=== PATIENT | male | born 1970 | race Hispanic/Latino ===

== ENCOUNTER 2018-02-24 15:15 | Emergency (ER) | payer SELFPAY ==
--- NOTE | 2018-02-24 18:48 | ER ---
Nurse's Notes [facility] Name: Devan Zhang Age: 47 yrs Sex: Male : 1970 Arrival Date: 02/24/2018 Time: 15:19 Bed Waiting Private MD: None, None Diagnosis: Presentation: 02/24 15:22 Presenting complaint: Patient states: RUQ pain for 1 week. Transition of care: patient aj was not received from another setting of care. Onset of symptoms was February 16, 2018. Care prior to arrival: None. 15:22 Method Of Arrival: Ambulatory aj 15:22 Acuity: CRISTIANE 3 aj Triage Assessment: 15:23 General: Appears in no apparent distress. comfortable, Behavior is calm, cooperative, aj appropriate for age. Pain: Complains of pain in right upper quadrant. Neuro: Level of Consciousness is awake, alert, obeys commands, Oriented to person, place, time, situation, Appropriate for age. Respiratory: Airway is patent Respiratory effort is even, unlabored, Respiratory pattern is regular, symmetrical. GI: Reports upper abdominal pain. Derm: Skin is intact, is healthy with good turgor, Skin is pink, warm \T\ dry. normal. Historical: - Allergies: 15:23 No Known Allergies; aj - Home Meds: 15:23 None [Active]; aj - PMHx: 15:23 None; aj - PSHx: 15:23 None; aj - Immunization history:: Adult Immunizations up to date. - Social history:: Smoking status: Patient uses tobacco products, smokes one-half pack cigarettes per day, Patient uses alcohol, claims drinking about a 6 pack/day. Assessment: 18:46 Reassessment: Patient's reported that patient walked home. aj Vital Signs: 15:23 BP 135 / 95; Pulse 61; Resp 20; Temp 97.5; Pulse Ox 98% on R/A; Weight 77.11 kg; Height aj 5 ft. 6 in. (167.64 cm); 15:23 Body Mass Index 27.44 (77.11 kg, 167.64 cm) aj ED Course: 15:19 Patient arrived in ED. mr 15:19 None, None is Private Physician. mr 15:22 Triage completed. aj 15:23 Arm band placed on left wrist. Patient placed in waiting room, Patient notified of wait aj time. 16:25 Patient's name was called from ER lobby. No response. dm5 16:37 Patient's name was called from ER lobby. No response. aj 18:44 Kasandra Hernandez, RN is Primary Nurse. kr2 18:46 Lorenzo Smith PA is PHCP. cp 18:46 Madan Galan MD is Attending Physician. cp Administered Medications: No medications were administered Outcome: 18:46 Eloped from waiting room, before seeing physician Time discovered patient gone: February 24 2018 at 18:46 18:47 Patient left the ED. aj Signatures: Sarah Gutierrez, RN RN Mariluz Meraz RN Sirena Van mr Lorenzo Smith PA PA cp Kasandra Hernandez, LOLIS RN kr2
== END 2018-02-24 18:47 | disposition left against medical advice (07) ==
LOC: ER 15:15
DX: Z02.9 Encounter for administrative examinations, unspecified (principal)
CPT/HCPCS: 99281

== ENCOUNTER 2019-01-04 18:50 | Emergency (ER) | payer SELFPAY ==
[2019-01-05] MEDS ORDERED: HYDROCODONE/APAP 7.5/325 MG TAB ONE (00:16)
[2019-01-05] MEDS ORDERED: IBUPROFEN 400 MG TAB ONE (00:16)
[2019-01-05] MEDS ORDERED: ACYCLOVIR 400 MG TABLET ONE (00:16)
--- NOTE | 2019-01-05 00:43 | ER ---
Nurse's Notes [facility] Name: Devan Zhang Age: 48 yrs Sex: Male : 1970 Arrival Date: 01/04/2019 Time: 18:53 Bed 10 Private MD: Diagnosis: Zoster [herpes zoster]-Right T5 dermatome Presentation: 01/04 19:26 Presenting complaint: Patient states: "I am having pain and a rash on the right side, jd3 under my arm. it really prado.". Transition of care: patient was not received from another setting of care. Onset of symptoms was December 31, 2018. Risk Assessment: Do you want to hurt yourself or someone else? Patient reports no desire to harm self or others. Initial Sepsis Screen: Does the patient meet any 2 criteria? No. Patient's initial sepsis screen is negative. Does the patient have a suspected source of infection? No. Patient's initial sepsis screen is negative. Care prior to arrival: None. 19:26 Method Of Arrival: Ambulatory jd3 19:26 Acuity: CRISTIANE 3 jd3 Historical: - Allergies: 19:27 No Known Allergies; jd3 - Home Meds: 19:27 None [Active]; jd3 - PMHx: 19:29 Hypertension; jd3 - PSHx: 19:27 None; jd3 - Immunization history:: Adult Immunizations unknown. - Social history:: Smoking status: Patient uses tobacco products, denies chronic smoking, but will smoke occasionally. - Ebola Screening: : Patient negative for fever greater than or equal to 101.5 degrees Fahrenheit, and additional compatible Ebola Virus Disease symptoms. Screenin:25 Abuse screen: Denies threats or abuse. Nutritional screening: No deficits noted. Fall fu Risk None identified. No fall in past 12 months (0 pts). Assessment: 23:18 General: Appears uncomfortable, well groomed, Behavior is calm, cooperative, Denies fu fever, chills. Pain: Complains of pain in upper side of the right chest, right armpit, upper portion of the right back. Pain does not radiate. Pain currently is 10 out of 10 on a pain scale. Quality of pain is described as burning, Pain began 6 days ago. Neuro: Level of Consciousness is awake, alert, obeys commands. Cardiovascular: Denies chest pain. Respiratory: Breath sounds are clear bilaterally. GI: No signs and/or symptoms were reported involving the gastrointestinal system. : No signs and/or symptoms were reported regarding the genitourinary system. Derm: redness and rashes noted to upper side of right chest, right armpits and upper potion of right back that started 4 days ago. Musculoskeletal: No deficits noted. 01/05 00:46 Reassessment: Patient appears in no apparent distress at this time. Patient and/or fu family updated on plan of care and expected duration. Pain level reassessed. Pain: Complains of pain in right scapular area and chest and back Pain currently is 8 out of 10 on a pain scale. Quality of pain is described as burning. Neuro: Level of Consciousness is awake, alert, obeys commands. Respiratory: Airway is patent Respiratory effort is even, unlabored, Respiratory pattern is regular. Vital Signs: 01/04 19:28 BP 156 / 111; Pulse 66; Resp 17 S; Temp 99.0(TE); Pulse Ox 97% on R/A; Weight 90.72 kg jd3 (R); Height 5 ft. 6 in. (167.64 cm) (R); Pain 8/10; 23:13 BP 169 / 115; Pulse 64; Resp 17 S; Temp 98.9(O); Pulse Ox 98% on R/A; jd3 01/05 00:33 BP 154 / 92; Pulse 66; Resp 18; Temp 97.3(O); Pulse Ox 97% on R/A; Pain 8/10; fu 01/04 19:28 Body Mass Index 32.28 (90.72 kg, 167.64 cm) jd3 ED Course: 01/04 18:53 Patient arrived in ED. ss4 19:27 Triage completed. jd3 19:29 Arm band placed on Patient notified of wait time. jd3 23:18 James Gaines, LOLIS is Primary Nurse. fu 23:19 Lorenzo Smith PA is PHCP. cp 23:20 Mamadou Long MD is Attending Physician. cp 01/05 01:02 No provider procedures requiring assistance completed. Patient did not have IV access fu during this emergency room visit. Administered Medications: 00:09 Drug: Hydrocodone-Acetaminophen (7.5 mg-325 mg) 1 tabs Route: PO; fu 00:51 Follow up: Response: No adverse reaction; Pain is decreased fu 00:09 Drug: Acyclovir 800 mg Route: PO; fu 00:51 Follow up: Response: No adverse reaction fu 00:09 Drug: Ibuprofen 800 mg Route: PO; fu 00:50 Follow up: Response: No adverse reaction; Pain is decreased fu Outcome: 00:42 Discharge ordered by MD. cp 01:02 Discharged to home ambulatory. fu 01:02 Condition: improved 01:02 Discharge instructions given to patient, Instructed on discharge instructions, follow up and referral plans. Demonstrated understanding of instructions, follow-up care, medications, Prescriptions given X 3. 01:03 Patient left the ED. fu Signatures: Lorenzo Smith PA PA cp Davies, Jonathon RN RN jJames Doran RN RN Anaya Boyd ss4 Corrections: (The following items were deleted from the chart) 01/04 19:29 19:27 PMHx: None; jd3 jd3 19:29 19:29 Arm band placed on jd3 jd3
--- NOTE | 2019-01-05 00:43 | EDPHYS ---
Physician Documentation [facility] Name: Devan Zhang Age: 48 yrs Sex: Male : 1970 Arrival Date: 01/04/2019 Time: 18:53 Bed 10 Private MD: ED Physician Mamadou Long HPI: 01/04 23:50 This 48 yrs old Male presents to ER via Ambulatory with complaints of Rash. cp 23:50 The patient's rash thought to be caused by an unknown cause. The rash is located on the cp back and chest. The rash can be described as erythematous, papular, raised. Onset: The symptoms/episode began/occurred 4 day(s) ago. Severity of symptoms: in the emergency department the symptoms are unchanged despite home interventions. Pain described as burning. Patient reports he started having pain in area 6 days ago. Historical: - Allergies: 19:27 No Known Allergies; jd3 - Home Meds: 19:27 None [Active]; jd3 - PMHx: 19:29 Hypertension; jd3 - PSHx: 19:27 None; jd3 - Immunization history:: Adult Immunizations unknown. - Social history:: Smoking status: Patient uses tobacco products, denies chronic smoking, but will smoke occasionally. - Ebola Screening: : Patient negative for fever greater than or equal to 101.5 degrees Fahrenheit, and additional compatible Ebola Virus Disease symptoms. ROS: 23:55 Constitutional: Negative for body aches, chills, fever, poor PO intake. cp 23:55 Eyes: Negative for injury, pain, redness, and discharge. cp 23:55 ENT: Negative for drainage from ear(s), ear pain, sore throat, difficulty swallowing, difficulty handling secretions. 23:55 Cardiovascular: Positive for chest pain, of the right side of chest, Negative for edema, palpitations. 23:55 Respiratory: Negative for cough, shortness of breath, wheezing. 23:55 Abdomen/GI: Negative for abdominal pain, nausea, vomiting, and diarrhea. 23:55 Back: Positive for pain at rest, pain with movement, of the right scapular area. 23:55 Skin: Positive for rash, of the chest and back. 23:55 Neuro: Negative for altered mental status, dizziness, headache, weakness. 23:55 All other systems are negative. Exam: 23:58 Constitutional: The patient appears in no acute distress, alert, awake, cp non-diaphoretic, non-toxic, well developed, well nourished, uncomfortable. 23:58 Head/Face: Normocephalic, atraumatic. cp 23:58 Eyes: Periorbital structures: appear normal, Conjunctiva: normal, no exudate, no injection, Sclera: no appreciated abnormality, Lids and lashes: appear normal, bilaterally. 23:58 ENT: External ear(s): are unremarkable, Nose: is normal, Mouth: is normal, Posterior pharynx: Airway: no evidence of obstruction, patent. 23:58 Neck: ROM/movement: is normal, is supple, without pain, no range of motions limitations. 23:58 Chest/axilla: Inspection: rash, of the right breast Palpation: crepitus, is not appreciated, tenderness, that is moderate, of the right breast. 23:58 Cardiovascular: Rate: normal, Rhythm: regular. 23:58 Respiratory: the patient does not display signs of respiratory distress, Respirations: normal, no use of accessory muscles, no retractions, no splinting, no tachypnea, labored breathing, is not present, Breath sounds: are clear throughout, no decreased breath sounds, no stridor, no wheezing. 23:58 Skin: rash can be described as erythematous, papular, grouped, on the right scapular area and right lower breast. Vital Signs: 19:28 BP 156 / 111; Pulse 66; Resp 17 S; Temp 99.0(TE); Pulse Ox 97% on R/A; Weight 90.72 kg jd3 (R); Height 5 ft. 6 in. (167.64 cm) (R); Pain 8/10; 23:13 BP 169 / 115; Pulse 64; Resp 17 S; Temp 98.9(O); Pulse Ox 98% on R/A; jd3 01/05 00:33 BP 154 / 92; Pulse 66; Resp 18; Temp 97.3(O); Pulse Ox 97% on R/A; Pain 8/10; fu 01/04 19:28 Body Mass Index 32.28 (90.72 kg, 167.64 cm) jd3 MDM: 01/04 23:20 Patient medically screened. cp 01/05 00:00 Differential diagnosis: varicella, allergic reaction, cellulitis. 00:40 Data reviewed: vital signs, nurses notes. 00:40 Counseling: I had a detailed discussion with the patient and/or guardian regarding: the cp historical points, exam findings, and any diagnostic results supporting the discharge/admit diagnosis, the need for outpatient follow up, a family practitioner, to return to the emergency department if symptoms worsen or persist or if there are any questions or concerns that arise at home. Response to treatment: the patient's symptoms have mildly improved after treatment, and as a result, I will discharge patient. 01/05 00:11 Order name: Vital Signs; Complete Time: 00:36 cp Administered Medications: 00:09 Drug: Hydrocodone-Acetaminophen (7.5 mg-325 mg) 1 tabs Route: PO; fu 00:51 Follow up: Response: No adverse reaction; Pain is decreased fu 00:09 Drug: Acyclovir 800 mg Route: PO; fu 00:51 Follow up: Response: No adverse reaction fu 00:09 Drug: Ibuprofen 800 mg Route: PO; fu 00:50 Follow up: Response: No adverse reaction; Pain is decreased fu Disposition: 01/05/19 00:42 Discharged to Home. Impression: Zoster [herpes zoster] - Right T5 dermatome. - Condition is Stable. - Discharge Instructions: Shingles. - Prescriptions for Acyclovir 800 mg Oral Tablet - take 1 tablet by ORAL route 5 times per day for 10 days; 50 tablet. Tylenol- Codeine #3 300-30 mg Oral Tablet - take 2 tablets by ORAL route every 6 hours As needed; 20 tablet. capsaicin 0.075 % Topical cream - apply 1 application by TOPICAL route 3 times per day As needed; 30 gram. - Medication Reconciliation Form, Thank You Letter, Antibiotic Education, Prescription Opioid Use form. - Follow up: Private Physician; When: 2 - 3 days; Reason: Recheck today's complaints. - Problem is new. - Symptoms have improved. Addendum: 01/06/2019 11:38 Co-signature as Attending Physician, Mamadou Long MD I agree with the assessment and w a plan of care. Signatures: Lorenzo Smith PA PA cp Appiah, William, MD MD wa Davies, Jonathon, RN RN jd3 James Gaines RN RN fu Corrections: (The following items were deleted from the chart) 01/04 19:29 19:27 PMHx: None; jd3 jd3 01/05 01:03 00:42 01/05/2019 00:42 Discharged to Home. Impression: Zoster [herpes zoster] - Right fu T5 dermatome. Condition is Stable. Forms are Medication Reconciliation Form, Thank You Letter, Antibiotic Education, Prescription Opioid Use. Follow up: Private Physician; When: 2 - 3 days; Reason: Recheck today's complaints. Problem is new. Symptoms have improved. cp
== END 2019-01-05 01:03 | disposition home or self-care (01) ==
LOC: ER 18:50
DX: B02.9 Zoster without complications (principal); B02.29 Other postherpetic nervous system involvement; I10 Essential (primary) hypertension; Z72.0 Tobacco use
CPT/HCPCS: 99283

== ENCOUNTER 2022-03-05 02:25 | Emergency (ER) | payer SELFPAY ==
[2022-03-05] MEDS ORDERED: Caclcium Chloride 10% INJ SYR IV ONE (02:26)
[2022-03-05] MEDS ORDERED: D50W 25 GM/50 ML VIAL IV ONE (02:26)
[2022-03-05] MEDS ORDERED: EPINEPHrine 1 MG/10 ML SYR IV ONE (02:26)
[2022-03-05] MEDS ORDERED: D5W 1,000 ML IV ONE (02:50)
[2022-03-05] MEDS ORDERED: EPINEPHRINE/PF 1 MG/ML AMP ONE (02:50)
--- NOTE | 2022-03-05 03:40 | ER ---
Nurse's Notes [facility] Name: Devan Zhang Age: 51 yrs Sex: Male : 1970 Arrival Date: 03/05/2022 Time: 02:36 Bed 4 Private MD: Diagnosis: Cardiac arrest, cause unspecified Presentation: 03/05 02:26 Chief complaint: EMS states: stated that they were having intercourse, pt as6 defecated, fell to floor and stopped breathing. EMS started compressions on seen. 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 02:26 Care prior to arrival: Assisted ventilation, Oral intubation, CPR via thumper and is as6 still in progress Cervical collar in place. Medication(s) given: Normal saline infusion, 1000 mL, epinephrine x4 Glucose check: 223. Compressions began prior to arrival. 02:26 Method Of Arrival: EMS: [facility] 02:26 Acuity: CRISTIANE 1 as 02:26 Onset of symptoms was March 05, 2022. as 02:26 Coronavirus screen: At this time, unable to obtain information related to travel as6 outside the [place] Ebola Screen: Unable to complete the Ebola screening because: Patient is intubated. Initial Sepsis Screen: Does the patient meet any 2 criteria? No. Patient's initial sepsis screen is negative. Does the patient have a suspected source of infection? No. Patient's initial sepsis screen is negative. Risk Assessment: Do you want to hurt yourself or someone else? Unable to obtain. Historical: - PMHx: 03:21 None; as6 - Immunization history:: Adult Immunizations unknown. - Social history:: Smoking status: unknown. Assessment: 02:26 CPR assessment: unresponsive, pupils fixed \T\ dilated, no respiratory effort, intubated, as6 Ambu ventilation. 02:33 Cardiac rhythm is PEA. as6 02:35 Cardiac rhythm is PEA. as6 02:52 Neuro: Babinski no response on right on left. as6 03:00 Cardiac rhythm is asystole. as6 06:54 General: Patient is going with medical collector to [place]. . tw5 Vital Signs: 02:40 BP 53 / 18; as6 02:42 BP 39 / 27; Pulse 90; Resp 14 A; Pulse Ox 96% on 15 lpm ETT ambu; as6 02:44 BP 139 / 59; as6 02:48 BP 75 / 44; Pulse 81; Resp 12 A; Pulse Ox 84% on 15 lpm ETT ambu; as6 02:56 Pulse 38; as6 02:59 Temp 96.9(R); as6 03:53 Weight 83.91 kg; as6 ED Course: 02:30 Maintain EMS IV. Dressing intact. Good blood return noted. Site clean \T\ dry. Gauge \T\ as 6 site: IO to right leg. 02:31 Inserted saline lock: 20 gauge in right antecubital area, using aseptic technique. as6 Blood collected. 02:36 Patient arrived in ED. bp1 02:39 Inserted saline lock: 18 gauge in left forearm, using aseptic technique. as6 03:01 Clemente Machuca MD is Attending Physician. mh7 03:04 Daryl Dolan, LOLIS is Primary Nurse. as6 03:05 Police notified at 03:06 contacted [place] [employer] to have an officer call out the 2 outside salesman for the patient. 03:12 Triage completed. as6 03:39 Clemente Machuca MD is Pronouncing Provider. mh7 03:45 Arm band placed on. as6 Administered Medications: 02:33 Drug: Sodium Bicarbonate 1 amp Route: IVP; Site: right antecubital; as6 03:46 Follow up: Response: No adverse reaction as6 02:36 Drug: EPINEPHrine 0.1mg/mL 1:10,000 1 mg Route: IVP; Site: right antecubital; as6 03:45 Follow up: Response: No adverse reaction as6 02:37 Drug: Calcium Chloride 1 grams Route: IVP; Site: right antecubital; as6 03:45 Follow up: Response: No adverse reaction as6 Medication: 03:45 VIS not applicable for this client. as6 Outcome: 03:00 Outcome Patient as6 03:00 Condition: as6 03:00 Patient : Time of 03:00 Pronounced by Clemente Machuca MD as6 07:47 Patient left the ED. drew Signatures: Macey Delacruz mw2 Rosenad Otero bp1 Clemente Machuca MD MD 7 Kyra Perez tw5 Daryl Dolan, LOLIS RN as6 Twila Peters RN RN drew Corrections: (The following items were deleted from the chart) :22 03:21 PMHx: Hypertension; as6 as6
--- NOTE | 2022-03-05 03:40 | EDPHYS ---
Physician Documentation [facility] Name: Devan Zhang Age: 51 yrs Sex: Male : 1970 Arrival Date: 03/05/2022 Time: 02:36 Bed 4 Private MD: ED Physician Clemente Machuca HPI: 03/05 03:04 This 51 yrs old Male presents to ER via Unassigned with complaints of CPR. mh7 03:04 Preceding the arrest, the patient collapsed. The arrest occurred at home. Pre-hospital mh7 course: The arrest was witnessed by family. Bystanders at the scene did not perform CPR. EMS care prior to arrival: initiation of ACLS, peripheral IV, Intraosseous access. intubation was successfully performed, oxygen, by BVM to assist ventilations. 100% by ET tube. Time elapsed prior to ACLS is unknown. ACLS has been in progress for 42 minutes. ACLS details: Initial rhythm was PEA. The presenting rhythm is PEA. Airway: Ambu assist ventilation, Medications given by EMS prior to arrival - Epinephrine IV x 4 doses, Defibrillation was not performed, an external pacer was not used, Response to therapy: continued arrest. Per EMS, they were called to patient's home after he collapsed during intercourse. At the scene, he was noted to be in PEA. ACLS was initiated and patient was intubated. He received Epinephrine 4 mg total with brief non sustained ROSC. Patient in PEA on arrival to ED unresponsive, without spontaneous respirations, no response to any stimuli, and fixed/dilated pupils.. Historical: - PMHx: 03:21 None; as6 - Immunization history:: Adult Immunizations unknown. - Social history:: Smoking status: unknown. ROS: 03:04 Unable to obtain ROS due to comatose state. mh7 Exam: 03:04 Head/Face: Normocephalic, atraumatic. Eyes: Pupils equal round and reactive to light, mh7 extra-ocular motions intact. Lids and lashes normal. Conjunctiva and sclera are non-icteric and not injected. Cornea within normal limits. Periorbital areas with no swelling, redness, or edema. 03:04 Neck: Trachea midline, no thyromegaly or masses palpated, and no cervical lymphadenopathy. Supple, full range of motion without nuchal rigidity, or vertebral point tenderness. No Meningismus. Chest/axilla: Normal chest wall appearance and motion. Nontender with no deformity. No lesions are appreciated. 03:04 Male : Normal genitalia with no discharge or lesions. Skin: Warm, dry with normal turgor. Normal color with no rashes, no lesions, and no evidence of cellulitis. 03:04 Constitutional: The patient appears in obvious distress, severely distressed, unresponsive. 03:04 ENT: Nose: dried blood, ETT in place. 03:04 Cardiovascular: Rate: actual rate is 0 bpm, Rhythm: PEA, Pulses: not palpable, Heart sounds: Absent, Edema: is not appreciated, JVD: is not appreciated. 03:04 Abdomen/GI: Inspection: abdomen appears normal, Palpation: soft, in all quadrants, mass, is not appreciated. 03:04 Back: normal spinal alignment noted. 03:04 Musculoskeletal/extremity: no signs of trauma, no spontaneous movement. 03:04 Neuro: Orientation: unable to test, the patient is comatose, Mentation: unable to test, the patient is comatose, Memory: unable to test, the patient is comatose, Cranial nerves: unable to test, the patient is comatose, Cerebellar function: unable to test, the patient is comatose, Motor: no spontaneous movement, Sensation: no response to any stimuli, seizure activity, is not displayed by the patient, Abnormal movements: there are no abnormal movements. Vital Signs: 02:40 BP 53 / 18; as6 02:42 BP 39 / 27; Pulse 90; Resp 14 A; Pulse Ox 96% on 15 lpm ETT ambu; as6 02:44 BP 139 / 59; as6 02:48 BP 75 / 44; Pulse 81; Resp 12 A; Pulse Ox 84% on 15 lpm ETT ambu; as6 02:56 Pulse 38; as6 02:59 Temp 96.9(R); as6 03:53 Weight 83.91 kg; as6 Procedures: 03:04 CPR: See CPR flow sheet. Initial patient assessment: pupils fixed \T\ dilated, no mh7 respiratory effort, intubated, Ambu ventilation, pulses absent w/ compressions, The presenting cardiac rhythm is PEA. respirations assisted with BVM, the patient was intubated prior to arrival, Compressions: began prior to arrival. Meds given: See Meds list. Epinephrine X 1, Sodium Bicarbonate 1 amp, Calcium Chloride 1 amp. regained rhythm, briefly, despite ED evaluation and treatment, the patient . Family notified. CPR was stopped at 03:00. MDM: 03:04 Differential diagnosis: arrythmia, cardiac arrest, respiratory arrest, overdose, mh7 asphyxiation. Data reviewed: vital signs, nurses notes, EMS record. Response to treatment: There is no appreciated change of the patient's symptoms at this time. ED course: Patient remained without signs of life including no spontaneous pulse or heartbeat, no spontaneous respirations, no response to any stimuli, and fixed/dilated pupils. CPR discontinued and patient pronounced at 0300. Will discuss with family. Nursing staff to contact medical specialist.. 03:39 Patient medically screened. [facility] Administered Medications: 02:33 Drug: Sodium Bicarbonate 1 amp Route: IVP; Site: right antecubital; as6 03:46 Follow up: Response: No adverse reaction as6 02:36 Drug: EPINEPHrine 0.1mg/mL 1:10,000 1 mg Route: IVP; Site: right antecubital; as6 03:45 Follow up: Response: No adverse reaction as6 02:37 Drug: Calcium Chloride 1 grams Route: IVP; Site: right antecubital; as6 03:45 Follow up: Response: No adverse reaction as6 Disposition: 03:04 . [facility] Disposition Summary: 03/05/22 03:39 Patient Location: [facility] Pronouncing Physician: Clemente Machuca [facility] Time of : 03:00 03/05/2022 [facility] Diagnosis - Cardiac arrest, cause unspecified [facility] Signatures: Clemente Machuca MD MD [facility] Daryl Dolan RN RN as6 Corrections: (The following items were deleted from the chart) 03:22 03:21 PMHx: Hypertension; as6 as6 03:25 03:04 Per EMS, they were called to patient's home after he collapsed during [facility] intercourse. At the scene, he was noted to be in PEA. ACLS was initiated and patient was intubated. He received Epinephrine 4 mg total with brief non sustained ROSC. Patient in PEA on arrival to ED and CPR continued.. [facility]
[2022-03-05 08:06] VITALS: BP 75/44; O2SAT 84
[2022-03-05 08:08] VITALS: TEMP 96.9
== END 2022-03-05 07:47 ==
LOC: ER 02:25
DX: I46.9 Cardiac arrest, cause unspecified (principal)
CPT/HCPCS: 92950; 96374; 96375; 99291; J0171